=== PATIENT | male | born 1995 | race Two or more races ===

== ENCOUNTER 2016-12-14 02:18 | Emergency (ER) | payer SELFPAY ==
[~2016-12-14] VITALS: Ht 170.2 cm; Wt 65.8 kg
[2016-12-14 02:22] VITALS: BP 137/78
== END 2016-12-14 03:38 | disposition home or self-care (01) ==
LOC: ER 02:20
DX: M79.641 Pain in right hand (principal); G89.29 Other chronic pain
CPT/HCPCS: 73130-TC; A4606; Z7610